=== PATIENT | female | born 1950 | race Caucasian/White ===

== ENCOUNTER 2016-07-13 12:25 | Emergency (ER) | payer OTHER, BC ==
[2016-07-13 12:54] VITALS: BP 99/64; PULSE 59; TEMP 97.6; BMI 28.8
--- NOTE | 2016-07-13 13:01 | PDOC ---
History of Present Illness - General Chief Complaint: Respiratory Stated Complaint: COUGH Time Seen by Provider: 07/13/16 12:59 - History of Present Illness Initial Comments: 07/13/16 13:43 Chief complaint: Cough History of present illness: Patient with a history of asthma/COPD, nonproductive cough for 2 weeks, under the care of Dr. 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 Cough seems to be worsening. Review of systems: No fever/chills, sputum production, chest pain, shortness of breath, abdominal pain, nausea, vomiting, diarrhea, urinary tract symptoms, vaginal bleeding or discharge. Remainder of systems reviewed and found to be negative Past medical history: Asthma/COPD, has home nebulizer but ran out of solution, elevated cholesterol, GERD, Medications: Synthroid, Singulair, Advair, albuterol inhaler, atorvastatin, baby aspirin, Klonopin, prednisone 30 mg. ALLERGIES: None Social history: No tobacco alcohol or nonprescription drugs. Stable home and family. Family history: Reviewed and noncontributory including early coronary artery disease, verbalizes including diabetes, cancer, pulmonary disease including emphysema Physical exam: Alert and oriented 3, well-developed well-nourished, no acute distress. Persistent dry cough Afebrile, vital signs normal. This includes a respiratory rate of 16 unlabored and O2 saturation of 100% on room air ENT: Mild nasal congestion, no discharge Next I would agree mass or nodes Chest clear but breath sounds somewhat distant, reduced. No wheezes rales or rhonchi CV regular without murmur rub or gallop pulses full and symmetric no JVD or edema Abdomen benign Neurological intact Extremities no CCE Impression: Persistent cough and patient was COPD/asthma, status post Augmentin and steroids, no improvement, rule out pneumonia Plan: Chest x-ray and further management depending on results. Reinstitute nebulizer therapy as needed. Further observation. Past History - Past Medical History Allergies/Adverse Reactions: Allergies Allergy/AdvReac Type Severity Reaction Status Date / Time No Known Allergies Allergy Verified 07/13/16 12:27 Home Medications: Ambulatory Orders Levothyroxine Sodium [Synthroid] 50 mcg PO DAILY 11/29/11 Montelukast Na [Singulair -] 10 mg PO HS #0 tablet 08/22/12 Raloxifene HCl [Evista] 60 mg PO DAILY #0 tablet 08/22/12 Ranitidine [Zantac -] 150 mg PO BID #0 tablet 08/22/12 Salmeterol/Fluticasone [Advair 500Mcg/50Mcg -] 1 inh IH BID #0 inh 08/22/12 Biotin 1 cap PO DAILY 03/25/14 Cholecalciferol (Vitamin D3) [Vitamin D3] 1 tab PO DAILY 03/25/14 Aspirin [ASA -] 81 mg PO ASDIR 07/13/16 Atorvastatin Ca [Lipitor] 10 mg PO HS 07/13/16 Clonazepam [KlonoPIN] 0.5 mg PO DAILY 07/13/16 Montelukast Sodium [Singulair Granules -] 2 inhaler DAILY 07/13/16 Prednisone [Deltasone -] 30 mg PO UTDICT 07/13/16 Anemia: Yes (H/O) Asthma: Yes Cancer: No Cardiac Disorders: Yes (MVP) CVA: No COPD: No CHF: No Dementia: No Diabetes: No GI Disorders: Yes (GERD,HIATAL HERNIA) Disorders: No HTN: Yes Hypercholesterolemia: Yes Liver Disease: No Seizures: No Thyroid Disease: Yes (HYPOTHYROID DISEASE) - Surgical History Abdominal Surgery: No Cardiac Surgery: No Lung Surgery: No Neurologic Surgery: No Orthopedic Surgery: No - Immunization History Immunization Up to Date: No - Psycho/Social/Smoking Cessation Hx Anxiety: No Suicidal Ideation: No Smoking Status: No (QUIT 1982) Smoking History: Former smoker Have you smoked in the past 12 months: No Number of Cigarettes Smoked Daily: 0 Information on smoking cessation initiated: No Hx Alcohol Use: No Drug/Substance Use Hx: No Substance Use Type: None Hx Substance Use Treatment: No *Physical Exam - Vital Signs Last Vital Signs Temp Pulse Resp BP Pulse Ox 97.6 F 59 L 16 99/64 100 07/13/16 12:40 07/13/16 12:40 07/13/16 12:40 07/13/16 12:40 07/13/16 12:40 Medical Decision Making - Medical Decision Making 07/13/16 14:10 Improvement with nebulizer. Chest x-ray clear Continue steroids, refill home nebulizer solution, follow-up with Dr. Mcgraw. Copy of x-ray report given. Patient fully ambulatory and in no respiratory distress upon discharge to follow up as directed. *DC/Admit/Observation/Transfer Diagnosis at time of Disposition: Asthma exacerbation in COPD - Discharge Dispostion Disposition: HOME Condition at time of disposition: Stable Admit: No - Patient Instructions Printed Discharge Instructions: DI for Chronic Obstructive Pulmonary Disease Additional Instructions: Chest x-ray shows no sign of pneumonia. Initial home nebulizer as directed. Refill of solutions provided. Continue medication as directed by your doctor See her cardiopulmonary technician and eeg tech for follow-up 1-2 days. Return to hospital if he experienced fever, chills, or shortness of breath.
[2016-07-13] MEDS ORDERED: ALBUTEROL SO4 2.5/IPRATROPIUM 0.5 INH SOL 3 ML VIAL.NEB. NEB ONE ×2 (13:32→13:40)
== END 2016-07-13 14:19 | disposition home or self-care (01) ==
LOC: FER 12:25
PROC: 3E0F7GC Introduction of Other Therapeutic Substance into Respiratory Tract, Via Natural or Artificial Opening (ICD-10-PCS; principal; 2016-07-13)
DX: J45.901 Unspecified asthma with (acute) exacerbation (principal); Z87.891 Personal history of nicotine dependence; I10 Essential (primary) hypertension; K21.9 Gastro-esophageal reflux disease without esophagitis; E78.00 Pure hypercholesterolemia, unspecified; E03.9 Hypothyroidism, unspecified; I34.1 Nonrheumatic mitral (valve) prolapse
CPT/HCPCS: 71020-TC; 94640; 99282-25

== ENCOUNTER 2016-11-11 07:56 | Day surgery (SDC) | payer OTHER, BC ==
[2016-11-10 11:47] VITALS: BMI 28.3
[2016-11-11] MEDS ORDERED: LIDOCAINE HCL 2% (20ML MULTI-DOSE VIAL) NR ONE (08:52)
[2016-11-11] MEDS ORDERED: PROPOFOL 20 ML ONE ×2 (08:52)
[2016-11-11 09:26] VITALS: TEMP 97.6
[2016-11-11 11:53] VITALS: BP 136/81; PULSE 63
--- NOTE | 2016-11-12 14:32 | PATH ---
Surgical Pathology Report Patient Name: JOSE R COLE [facility]. Rec. #: [id number] /Age/Gender: 1950 (Age: 66) / F Account: [id number] Location: [facility]-ENDOSCOPY Taken: 11/11/2016 Received: 11/11/2016 Reported: 11/12/2016 Physicians: Jg Carroll D.O. Specimen(s) Received BX GE JUNCTION Clinical History GERD Reflux esophagitis, candidiasis Final Diagnosis GE JUNCTION, BIOPSY: SQUAMOCOLUMNAR JUNCTIONAL MUCOSA WITH ACTIVE AND CHRONIC INFLAMMATION, FOCAL SURFACE EROSION AND REFLUX TYPE CHANGES. NO INTESTINAL METAPLASIA (SULLIVAN'S ESOPHAGUS) IDENTIFIED. NO FUNGAL ORGANISMS IDENTIFIED WITH PAS STAIN IN THIS SPECIMEN (SEE COMMENT). Comment: Also refer to [id number] for the esophageal brushing results. Electronically Signed Stuart Jeffery M.D. Gross Description Received in formalin, labeled "biopsy GE junction" are 2 briceño, irregular portions of soft tissue averaging 0.2 cm in greatest dimension. The specimens are submitted in toto in one cassette. /11/11/201611/11/2016
--- NOTE | 2016-11-12 14:33 | PATH ---
Cytology Non-Gynecological Report Patient Name: JOSE R COLE [facility]. Rec. #: [id number] /Age/Gender: 1950 (Age: 66) / F Account: [id number] Location: [facility]-ENDOSCOPY Taken: 11/11/2016 Received: 11/11/2016 Reported: 11/12/2016 Physicians: Jg Carroll D.O. Specimen(s) Received ESOPHAGEAL BRUSH Clinical History R/o nikita Final Diagnosis ESOPHAGUS, BRUSHING: SATISFACTORY FOR EVALUATION. NO MALIGNANT CELLS IDENTIFIED. REACTIVE SQUAMOUS CELLS. ACUTE INFLAMMATION. NUMEROUS FUNGAL ORGANISMS MORPHOLOGICALLY CONSISTENT WITH NIKITA SPECIES IDENTIFIED. Electronically Signed Stuart Jeffery M.D. Gross Description Received is 10 cc of clear fluid in 95% alcohol. Three Pap stained smear slides are made.
== END 2016-11-11 10:20 | disposition home or self-care (01) ==
LOC: JASU-ENDO 07:56
PROVIDERS: ATTEND Internal Medicine Gastroenterology
PROC: 0DB18ZX Excision of Upper Esophagus, Via Natural or Artificial Opening Endoscopic, Diagnostic (ICD-10-PCS; 2016-11-11)
PROC: 0DB28ZX Excision of Middle Esophagus, Via Natural or Artificial Opening Endoscopic, Diagnostic (ICD-10-PCS; principal; 2016-11-11 09:00)
DX: K21.0 Gastro-esophageal reflux disease with esophagitis (principal); K44.9 Diaphragmatic hernia without obstruction or gangrene
CPT/HCPCS: 88104; 88305-TC; 88312-TC

== ENCOUNTER 2016-12-16 08:17 | Day surgery (SDC) | payer OTHER, BC ==
[2016-12-15 13:34] VITALS: BMI 27.8
[2016-12-16] MEDS ORDERED: PROPOFOL 20 ML ONE ×2 (08:49)
[2016-12-16 10:46] LABS: CALCIUM 8.5 mg/dL (8.5-10.1); CREATININE 0.6 mg/dL (0.55-1.02); MAGNESIUM 2.4 mg/dL (1.8-2.4)
[2016-12-16 11:30] VITALS: TEMP 97.7
--- NOTE | 2016-12-16 12:30 | EKG ---
Test Reason : Blood Pressure : / mmHG Vent. Rate : 058 BPM Atrial Rate : 058 BPM P-R Int : 142 ms QRS Dur : 096 ms QT Int : 440 ms P-R-T Axes : 051 -10 017 degrees QTc Int : 431 ms SINUS BRADYCARDIA OTHERWISE NORMAL ECG WHEN COMPARED WITH ECG OF 16-AUG-2012 17:30, NO SIGNIFICANT CHANGE WAS FOUND Confirmed by HARDIK BERTRAND MD ([id number]) on 12/16/2016 12:30:17 PM Referred By: KIRILL EVERETT Confirmed By:HARDIK BERTRAND MD
[2016-12-16 12:40] VITALS: BP 134/61; PULSE 62
--- NOTE | 2016-12-17 10:28 | PATH ---
Surgical Pathology Report Patient Name: JOSE R COLE [facility]. Rec. #: [id number] /Age/Gender: 1950 (Age: 66) / F Account: [id number] Location: [facility]OS[facility] Taken: 12/16/2016 Received: 12/16/2016 Reported: 12/17/2016 Physicians: Jg Carroll D.O. Specimen(s) Received POLYP PROXIMAL TRANSVERSE Clinical History History of colon polyps Colon polyp, diverticulosis Final Diagnosis COLON, PROXIMAL TRANSVERSE, BIOPSY: HYPERPLASTIC POLYP. Electronically Signed Shola Sharpe M.D. Gross Description Received in formalin, labeled "polyp proximal transverse" is a briceño, irregular portion of soft tissue measuring 0.2 cm. in greatest dimension. The specimen is submitted in toto in one cassette. 12/16/201612/16/2016
== END 2016-12-16 12:40 | disposition home or self-care (01) ==
LOC: JASU-ENDO 08:17
PROVIDERS: ATTEND Internal Medicine Gastroenterology
PROC: 0DBL8ZX Excision of Transverse Colon, Via Natural or Artificial Opening Endoscopic, Diagnostic (ICD-10-PCS; principal; 2016-12-16 09:00)
DX: Z12.11 Encounter for screening for malignant neoplasm of colon (principal); D12.3 Benign neoplasm of transverse colon; K57.30 Diverticulosis of large intestine without perforation or abscess without bleeding; K63.89 Other specified diseases of intestine; K64.8 Other hemorrhoids; Z86.010 Personal history of colon polyps; Z80.0 Family history of malignant neoplasm of digestive organs
CPT/HCPCS: 36415; 80048; 83735; 88305-TC; 93005; 93010

== ENCOUNTER 2017-02-11 19:19 | Emergency (ER) | payer OTHER, BC ==
--- NOTE | 2017-02-11 19:29 | PDOC ---
History of Present Illness - History of Present Illness Initial Comments: 02/11/17 19:34 67 F with a PMHx of asthma/COPD presents to the ED with a right handed 4th digit injury today. Patient reports that she caught her finger on something and it pulled her finger the wrong way. She has associated pain and swelling. She came to the ED to make sure it wasnt broken. She did not take anything for pain. No other complaints. PAST MEDICAL HISTORY: asthma/COPD PAST SURGICAL HISTORY: no significant history FAMILY HISTORY: no pertinent history SOCIAL HISTORY: Pt lives with family and is employed. MEDICATIONS: reviewed ALLERGIES: As per nursing notes Review of Systems: General: No fevers or chills, no weakness, no weight loss HEENT: No change in vision. No sore throat,. No ear pain CardioVascular: No chest pain or shortness of breath Respiratory: No cough, or wheezing. Gastrointestinal: no nausea, vomiting, diarrhea or constipation, No rectal bleeding Genitourinary: No dysuria, hematuria, or frequency Musculoskeletal: (+) right handed 4th digit pain and swelling. Neurologic: No headache, vertigo, dizziness or loss of consciousness Psychiatric: No depression Skin: No rashes or easy bruising Endocrine: No increased thirst or abnormal weight change Allergic: No skin or latex allergy All other systems reviewed and normal Physical Exam: GENERAL: The patient is awake, alert, and fully oriented, in no acute distress. HEAD: Normal with no signs of trauma. EYES: Pupils equal, round and reactive to light, extraocular movements intact, sclera anicteric, conjunctiva clear. EXTREMITIES: Tenderness, swelling and mild erythema of the proximal phalanx at the right ring finger. Full ROM at MCP and PIP joint. No deformity. Neurovascular distal intact. NEUROLOGICAL: Normal speech, normal gait. PSYCH: Normal mood, normal affect. SKIN: Warm, Dry, normal turgor, no rashes or lesions noted. <Odessa Tolentino - Last Filed: 02/11/17 19:34> - General History Source: Patient Exam Limitations: No Limitations - History of Present Illness Initial Comments: 02/11/17 20:06 A portion of this note was documented by scribe services under my direction. I have reviewed the details of the note, within reason, and agree with the documentation. The case summary and management plan written by me. X-ray no acute fracture dislocation Assessment and plan: This is a 67-year-old female or injured her right ring finger earlier in the day prior to coming in. Patient x-rays negative for any acute fracture dislocation or pathology. Patient given ibuprofen in the emergency room. Patient discharged home will follow-up with her primary care doctor as needed. <Albert Harrell I - Last Filed: 02/11/17 20:08> - General Chief Complaint: Injury Stated Complaint: RH 4TH FINGER INJURY Time Seen by Provider: 02/11/17 19:21 Past History <Odessa Tolentino - Last Filed: 02/11/17 19:34> - Past Medical History Anemia: No Asthma: Yes Cancer: No Cardiac Disorders: (MVP) CVA: No COPD: No CHF: No Dementia: No Diabetes: No GI Disorders: Yes (HIATAL HERNIA;GERD; DIVERTICULOSIS) Disorders: No HTN: Yes Hypercholesterolemia: Yes Liver Disease: No Seizures: No Thyroid Disease: Yes (PARATHYROID DISEASE) - Surgical History Abdominal Surgery: No Appendectomy: No Cardiac Surgery: No Cholecystectomy: No Lung Surgery: No Neurologic Surgery: No Orthopedic Surgery: Yes (FOOT SURGERY) - Immunization History Immunization Up to Date: No - Psycho/Social/Smoking Cessation Hx Anxiety: No Suicidal Ideation: No Smoking Status: No (QUIT 1982) Smoking History: Never smoked Have you smoked in the past 12 months: No Number of Cigarettes Smoked Daily: 0 If you are a former smoker, when did you quit?: 1983 Hx Alcohol Use: Yes (OCCA.) Drug/Substance Use Hx: No Substance Use Type: None Hx Substance Use Treatment: No <Albert Harrell I - Last Filed: 02/11/17 20:08> - Past Medical History Allergies/Adverse Reactions: Allergies Allergy/AdvReac Type Severity Reaction Status Date / Time mold Allergy Verified 11/10/16 11:31 DUST Allergy Uncoded 11/10/16 11:31 Home Medications: Ambulatory Orders Levothyroxine Sodium [Synthroid] 50 mcg PO DAILY 11/29/11 Montelukast Na [Singulair -] 10 mg PO HS #0 tablet 08/22/12 Raloxifene HCl [Evista] 60 mg PO DAILY #0 tablet 08/22/12 Salmeterol/Fluticasone [Advair 500Mcg/50Mcg -] 1 inh IH BID #0 inh 08/22/12 Biotin 1 cap PO DAILY 03/25/14 Cholecalciferol (Vitamin D3) [Vitamin D3] 1 tab PO DAILY 03/25/14 Atorvastatin Ca [Lipitor] 10 mg PO HS 07/13/16 Clonazepam [KlonoPIN] 0.5 mg PO DAILY 07/13/16 Valsartan 40 mg PO DAILY 11/11/16 Albuterol Sulfate [Proair Respiclick] 90 mcg IH DAILY PRN 12/15/16 Ranitidine [Zantac -] 150 mg PO DAILY 12/15/16 *Physical Exam - Vital Signs Last Vital Signs Temp Pulse Resp BP Pulse Ox 97.4 F L 72 16 130/80 98 02/11/17 19:26 02/11/17 19:26 02/11/17 19:26 02/11/17 19:26 02/11/17 19:26 <Odessa Tolentino - Last Filed: 02/11/17 19:34> - Vital Signs Last Vital Signs Temp Pulse Resp BP Pulse Ox 97.4 F L 72 16 130/80 98 02/11/17 19:26 02/11/17 19:26 02/11/17 19:26 02/11/17 19:26 02/11/17 19:26 <Albert Harrell I - Last Filed: 02/11/17 20:08> *DC/Admit/Observation/Transfer - Attestations Scribe Attestion: 02/11/17 19:35 Documentation prepared by Odessa Tolentino, acting as director biomedical engineering for Albert Harrell MD. <Odessa Tolentino - Last Filed: 02/11/17 19:34> - Discharge Dispostion Admit: No <Albert Harrell I - Last Filed: 02/11/17 20:08> Diagnosis at time of Disposition: Contusion of right ring finger Qualifiers: Encounter type: initial encounter Damage to nail status: without damage Qualified Code(s): S60.041A - Contusion of right ring finger without damage to nail, initial encounter - Discharge Dispostion Disposition: HOME Condition at time of disposition: Stable - Referrals Referrals: Beau Crouch MD [Primary Care Provider] - - Patient Instructions Additional Instructions: Tylenol or Motrin as needed for pain. Return to the emergency department immediately with ANY new, persistent or worsening symptoms. Continue any medications as previously prescribed by your physician. You should follow up with your primary doctor as soon as possible regarding today's emergency department visit. . Please make sure your doctor reviews the results of your emergency evaluation. Thank you for coming to the Emergency Department today for your care. It was a pleasure to see you today. Please note that your evaluation is INCOMPLETE until you follow-up with your doctor.
[2017-02-11 19:34] VITALS: BP 130/80; PULSE 72; TEMP 97.4; BMI 27.4
[2017-02-11] MEDS ORDERED: IBUPROFEN 600 MG TABLET (FP) PO ONE ×2 (19:46→19:48)
== END 2017-02-11 20:14 | disposition home or self-care (01) ==
LOC: FER 19:19
DX: S60.041A Contusion of right ring finger without damage to nail, initial encounter (principal); X58.XXXA Exposure to other specified factors, initial encounter; Y93.89 Activity, other specified; Y92.9 Unspecified place or not applicable; J45.909 Unspecified asthma, uncomplicated; K57.90 Diverticulosis of intestine, part unspecified, without perforation or abscess without bleeding; E07.9 Disorder of thyroid, unspecified; I10 Essential (primary) hypertension; E78.00 Pure hypercholesterolemia, unspecified; Z87.891 Personal history of nicotine dependence
CPT/HCPCS: 73140-TC-RT; 99281-25

== ENCOUNTER 2019-05-08 11:40 | Day surgery (SDC) | payer OTHER, BC ==
[2019-05-08] MEDS ORDERED: KETOROLAC TROMETHAMINE 0.5% EYE DROP 1 DROP DROPS ONE (11:59)
[2019-05-08] MEDS ORDERED: TROPICAMIDE 1% OPHTH SOLN 15 ML BOTTLE ONE (11:59)
[2019-05-08] MEDS ORDERED: CYCLOPENTOLATE HCL 1% OPHTH SOLN 2 ML BOTTLE ONE (11:59)
[2019-05-08] MEDS ORDERED: OFLOXACIN 0.3% OPHTHALMIC SOLUTION 5 ML BOTTLE ONE (11:59)
[2019-05-08] MEDS ORDERED: PHENYLEPHRINE 2.5% OPHTH SOLN 15 ML BOTTLE ONE (11:59)
[2019-05-08 12:30] VITALS: BMI 25.7
[2019-05-08] MEDS: TROPICAMIDE 1% OPHTH SOLN 15 ML BOTTLE OS SCH ×5 (12:50→13:10)
[2019-05-08] MEDS: KETOROLAC TROMETHAMINE 0.5% EYE DROP 1 DROP DROPS OS SCH ×5 (12:50→13:10)
[2019-05-08] MEDS: PHENYLEPHRINE 2.5% OPHTH SOLN 15 ML BOTTLE OS SCH ×5 (12:50→13:10)
[2019-05-08] MEDS: CYCLOPENTOLATE HCL 1% OPHTH SOLN 2 ML BOTTLE OS SCH ×5 (12:50→13:10)
[2019-05-08] MEDS: OFLOXACIN 0.3% OPHTHALMIC SOLUTION 5 ML BOTTLE OS SCH ×5 (12:50→13:10)
[2019-05-08] MEDS ORDERED: ACETAMINOPHEN 325 MG TABLET (FP) PO PRN (13:55)
[2019-05-08] MEDS ORDERED: EPI-SHUGARCAINE (EPINEPHRINE 0.025% & LIDOCAINE-PF 0.75%) 4ML ONE (14:11)
[2019-05-08] MEDS ORDERED: POVIDONE-IODINE 5% OPHTHALMIC PREP 30 ML SOLUTION ONE (14:11)
[2019-05-08] MEDS ORDERED: TETRACAINE 0.5% OPHTH SOLN 2 ML BOTTLE ONE (14:11)
[2019-05-08] MEDS ORDERED: MIDAZOLAM HCL 2 MG/2 ML SINGLE DOSE VIAL ONE ×2 (14:14→14:29)
[2019-05-08] MEDS ORDERED: ONDANSETRON 4 MG/2 ML VIAL ONE (14:30)
[2019-05-08] MEDS ORDERED: ACETAMINOPHEN 325 MG TABLET (FP) ONE (15:32)
--- NOTE | 2019-05-08 15:50 | OP ---
DATE OF OPERATION: 05/08/2019 PREOPERATIVE DIAGNOSIS: Cataract, left eye. POSTOPERATIVE DIAGNOSIS: Cataract, left eye. PROCEDURE: Cataract extraction via phacoemulsification with insertion of posterior chamber lens implant, left eye. SURGEON: Kandice Jacobson MD SENIOR TECHNICAL EDITOR: Kandice Jacobson MD ANESTHESIA: Topical with sedation. ESTIMATED BLOOD LOSS: Less than 1 mL. COMPLICATIONS: None. SPECIMENS: None. DESCRIPTION OF PROCEDURE: The patient was identified in the holding area. After all risks, benefits, and alternatives were explained to the patient, informed consent was obtained. The left eye was marked with a marking pen. The patient then entered the operating room on an eye stretcher. After a formal time-out was performed, topical tetracaine eye drops were instilled onto the left eye. The patient was then instructed to sit up and look straight ahead, and the cardinal axes of astigmatism were measured using a Toric bubble marker and a Toric marking pen. The patient was then instructed to lay back down, and the left eye was prepped and draped in the usual sterile fashion. An eyelid speculum was placed beneath the eyelid of the left eye. An inferotemporal paracentesis incision was created using a 15-degree blade. Then prior to incision creation, the axis of astigmatism was marked onto the cornea using a Toric dial and a Toric marking pen, which was noted to be 165 degrees. Then preservative-free epinephrine and preservative-free lidocaine was injected into the anterior chamber. Viscoelastic was then injected into the anterior chamber. A 2.4-mm keratome blade was then used to make a superotemporal incision. A 360-degree continuous curvilinear capsulorrhexis was then created using bent cystotome and Utrata forceps. Hydrodissection was performed using balanced saline solution on a cannula. Phacoemulsification was introduced to disassemble and remove the nucleus in its entirety. Irrigation/aspiration was then used to remove any remaining cortical material from the eye. The capsular bag was reformed using viscoelastic. An Clayton Model [id number] with a power of 17.0 diopter serial number [id number] was inspected and found to be defect free and injected into the capsular bag. Irrigation/aspiration was then used to remove any remaining viscoelastic from the eye. The intraocular lens was rotated so that the axis of astigmatism on the optic matched the axis of astigmatism on the cornea, which was noted to be 165 degrees. Then all wounds were hydrated with balanced saline solution and noted to be watertight. The anterior chamber was deep. There was a red reflex present. The lens was perfectly centered in the capsular bag, and the eye had adequate pressure. Topical antibiotic eyedrops and ointment were then administered to the left eye. The eyelid speculum was removed from the left eye. The left eye was shielded. The patient tolerated the procedure well. Left the operating room in stable condition to follow up in the eye clinic tomorrow morning at 10 o'clock. KANDICE JACOBSON M.D. [id number]
[2019-05-08 16:20] VITALS: TEMP 97.8
[2019-05-08 16:38] VITALS: BP 126/68; PULSE 65
== END 2019-05-08 16:20 | disposition home or self-care (01) ==
LOC: FASU 11:40
PROVIDERS: ATTEND Ophthalmology
PROC: 08RK3JZ Replacement of Left Lens with Synthetic Substitute, Percutaneous Approach (ICD-10-PCS; principal; 2019-05-08 14:41)
DX: H26.9 Unspecified cataract (principal)

== ENCOUNTER 2019-05-22 11:00 | Day surgery (SDC) | payer OTHER, BC ==
[2019-05-03 12:41] VITALS: BMI 25.7
[2019-05-22] MEDS ORDERED: OFLOXACIN 0.3% OPHTHALMIC SOLUTION 5 ML BOTTLE ONE (11:15)
[2019-05-22] MEDS ORDERED: CYCLOPENTOLATE HCL 1% OPHTH SOLN 2 ML BOTTLE ONE (11:15)
[2019-05-22] MEDS ORDERED: KETOROLAC TROMETHAMINE 0.5% EYE DROP 1 DROP DROPS ONE (11:16)
[2019-05-22] MEDS ORDERED: TROPICAMIDE 1% OPHTH SOLN 15 ML BOTTLE ONE (11:16)
[2019-05-22] MEDS ORDERED: PHENYLEPHRINE 2.5% OPHTH SOLN 15 ML BOTTLE ONE (11:16)
[2019-05-22] MEDS: TROPICAMIDE 1% OPHTH SOLN 15 ML BOTTLE OD SCH ×5 (11:35→11:55)
[2019-05-22] MEDS: KETOROLAC TROMETHAMINE 0.5% EYE DROP 1 DROP DROPS OD SCH ×6 (11:35→11:59)
[2019-05-22] MEDS: CYCLOPENTOLATE HCL 1% OPHTH SOLN 2 ML BOTTLE OD SCH ×5 (11:35→11:55)
[2019-05-22] MEDS: PHENYLEPHRINE 2.5% OPHTH SOLN 15 ML BOTTLE OD SCH ×5 (11:35→11:55)
[2019-05-22] MEDS: OFLOXACIN 0.3% OPHTHALMIC SOLUTION 5 ML BOTTLE OD SCH ×5 (11:35→11:55)
[2019-05-22] MEDS ORDERED: ACETAMINOPHEN 325 MG TABLET (FP) PO PRN (11:55)
[2019-05-22] MEDS ORDERED: EPI-SHUGARCAINE (EPINEPHRINE 0.025% & LIDOCAINE-PF 0.75%) 4ML ONE (11:57)
[2019-05-22] MEDS ORDERED: POVIDONE-IODINE 5% OPHTHALMIC PREP 30 ML SOLUTION ONE (11:57)
[2019-05-22] MEDS ORDERED: NEO/POLYMYX B SULF/DEXAMETH OPHTHALMIC 5ML BOTTLE ONE (11:57)
[2019-05-22] MEDS ORDERED: BETAXOLOL HCL 0.25% OPHTHALMIC 10 ML DROPSBTL ONE (11:57)
[2019-05-22] MEDS ORDERED: BACITRACIN/POLYMYXIN OPH OINT 3.5 GM TUBE ONE (11:57)
[2019-05-22] MEDS ORDERED: MIDAZOLAM HCL 2 MG/2 ML SINGLE DOSE VIAL ONE (12:13)
[2019-05-22 13:34] VITALS: PULSE 64; TEMP 98.3
--- NOTE | 2019-05-22 13:34 | OP ---
DATE OF OPERATION: 05/22/2019 PREOPERATIVE DIAGNOSIS: Cataract, right eye. POSTOPERATIVE DIAGNOSIS: Cataract, right eye. PROCEDURE: Cataract extraction via phacoemulsification with insertion of posterior chamber lens implant, right eye, Toric lens. SURGEON: Kandice Jacobson MD COUNCILMAN: Kandice Jacobson MD ANESTHESIA: Topical with sedation. ESTIMATED BLOOD LOSS: Less than 1 mL. COMPLICATIONS: None. SPECIMENS: None. DESCRIPTION OF PROCEDURE: The patient was identified in the holding area. After all risks and benefits were explained to the patient, informed consent was obtained. The right eye was marked with a marking pen. The patient then entered the operating room on an eye stretcher. After a formal time-out was performed, topical tetracaine eye drops were instilled onto the right eye. The patient was then asked to sit up and look straight ahead, and the cardinal axes of astigmatism were marked with a Toric bubble marker and a Toric marking pen. The patient was then asked to lay back down, and the right eye was prepped and draped in the usual sterile fashion. An eyelid speculum was placed beneath the eyelid of the right eye. Then the axis of astigmatism was marked onto the cornea, which was noted to be 180 degrees. That was done with a Toric dial and a Toric marking pen. Then a superotemporal paracentesis incision was created using a 15-degree blade. Preservative-free epinephrine and preservative-free lidocaine were then injected into the anterior chamber. Viscoelastic was then injected into the anterior chamber. A 2.4-mm keratome blade was then used to make an infratemporal incision. A 360-degree continuous curvilinear capsulorrhexis was then created using bent cystotome and Utrata forceps. Hydrodissection was performed using balanced saline solution on a cannula. Phacoemulsification was introduced to disassemble and remove the nucleus in its entirety. Irrigation/aspiration was then used to remove any remaining viscoelastic and cortex from the eye. The capsular bag was reformed using viscoelastic. An Clayton Model [id number] with a power of 20.5 diopter serial number [id number] was inspected and found to be defect free and injected into the capsular bag. Irrigation/aspiration was then used to remove any remaining viscoelastic. Then the intraocular lens was rotated so that the axis of astigmatism on the optic matched the axis of astigmatism on the cornea, which was noted to be 180 degrees. It was confirmed that all viscoelastic was evacuated posterior to the optic. Then the anterior chamber was reformed using balanced saline solution. All wounds were hydrated with balanced saline solution and noted to be watertight. The lens was perfectly centered in the capsular bag with the axis of astigmatism at 180 degrees. The anterior chamber was deep. There was a red reflex present, and the eye had adequate pressure. Topical antibiotic eyedrops and ointment were then administered to the right eye. The eyelid speculum was removed from the right eye. The right eye was shielded. The patient tolerated the procedure well. Left the operating room in stable condition to follow up in the eye clinic tomorrow morning at 10 o'clock. KANDICE JACOBSON M.D. [id number]
[2019-05-22 14:26] VITALS: BP 106/60
== END 2019-05-22 14:15 | disposition home or self-care (01) ==
LOC: FASU 11:00
PROVIDERS: ATTEND Ophthalmology
PROC: 08RJ3JZ Replacement of Right Lens with Synthetic Substitute, Percutaneous Approach (ICD-10-PCS; principal; 2019-05-22 12:38)
DX: H26.9 Unspecified cataract (principal)

== ENCOUNTER 2021-02-22 14:35 | Emergency (ER) | payer OTHER, BC ==
[2021-02-24 12:09] LABS: SARS-CoV-2 NAA Not Detected (Not Detected)
== END 2021-02-22 15:36 | disposition home or self-care (01) ==
LOC: JVIRT 14:35
DX: J02.9 Acute pharyngitis, unspecified (principal)
CPT/HCPCS: 87880; C9803; Q3014-GT; U0003; U0005

== ENCOUNTER 2021-09-30 12:33 | Inpatient (IN) | payer OTHER, BC ==
[2021-09-30] MEDS ORDERED: dilTIAZem HCL 50 MG/10 ML - 10 ML VIAL IVPUSH ONE (13:28)
[2021-09-30] MEDS ORDERED: dilTIAZem HCL 125 MG/25 ML - 25 ML VIAL ONE (13:53)
[2021-09-30 14:14] LABS: BASO % 1.3 % (0-2.0); EOS % 8.2 % (0-4.5); HEMATOCRIT 40.8 % (32.4-45.2); HEMOGLOBIN 13.9 GM/dL (10.7-15.3); LYMPH % 19.1 % (8-40); MCH 32.3 pg (25.7-33.7); MCHC 34.1 g/dl (32.0-36.0); MEAN CELL VOLUME 94.6 fl (80-96); MEAN PLT VOLUME 9.5 fl (7.5-11.1); MONO % 12.3 % (3.8-10.2); NEUT % 59.1 % (42.8-82.8); PLATELET COUNT 212 10^3/uL (134-434); RBC 4.32 M/mm3 (3.60-5.2); RDW 13.8 % (11.6-15.6); URINE APPEARANCE CLEAR; URINE BILIRUBIN NEGATIVE (NEGATIVE); URINE COLOR YELLOW; URINE GLUCOSE (UA) NEGATIVE (NEGATIVE); URINE KETONE TRACE (NEGATIVE); URINE LEUK ESTERASE NEGATIVE (NEGATIVE); URINE NITRITE NEGATIVE (NEGATIVE); URINE PROTEIN NEGATIVE (NEGATIVE); WHITE BLOOD COUNT 5.5 K/mm3 (4.0-10.0)
[2021-09-30 14:21] LABS: INR 1.04 (0.83-1.09)
[2021-09-30 14:24] LABS: ACTIVATED PTT 28.8 SECONDS (25.2-36.5)
[2021-09-30 14:33] LABS: CALCIUM 9.3 mg/dL (8.5-10.1)
[2021-09-30 14:34] LABS: ALBUMIN 3.6 g/dl (3.4-5.0); BLOOD UREA NITROGEN 10.6 mg/dL (7-18)
[2021-09-30 14:37] LABS: CREATININE 0.6 mg/dL (0.55-1.3)
[2021-09-30] MEDS ORDERED: dilTIAZem HCL 30 MG TABLET PO ONE (14:37)
[2021-09-30 14:39] LABS: BILIRUBIN,TOTAL 0.6 mg/dL (0.2-1); TOT PROT 6.6 g/dl (6.4-8.2)
[2021-09-30] MEDS ORDERED: dilTIAZem HCL 30 MG TABLET ONE (14:58)
[2021-09-30] MEDS ORDERED: metoPROLOL SUCCINATE 25 MG TAB.SR.24H (FP) PO SCH (17:00)
[2021-09-30] MEDS ORDERED: ACETAMINOPHEN 325 MG TABLET (FP) PO ONE (17:51)
[2021-09-30] MEDS: SOTALOL HCL 80 MG TABLET (FP) PO SCH ×2 (17:55→21:48)
[2021-09-30] MEDS ORDERED: ACETAMINOPHEN 325 MG TABLET (FP) ONE (17:56)
[2021-09-30] MEDS ORDERED: WARFARIN NA 5 MG TABLET PO SCH (18:00)
[2021-09-30] MEDS: ATORVASTATIN CA 10 MG TABLET (FP) PO SCH (21:48)
[2021-09-30] MEDS: APIXABAN 5 MG TABLET PO SCH (21:48)
[2021-09-30] MEDS: MONTELUKAST NA 10 MG TABLET PO SCH (21:49)
[2021-09-30] MEDS: BUDESONIDE/FORMETEROL FUMARATE 160/4.5 mcg INHALER IH SCH ×2 (21:49→21:53)
[2021-09-30] MEDS: TIOTROPIUM BROMIDE 2.5 MCG (SPIRIVA) RESPIMAT INHALER IH SCH ×2 (21:49→21:53)
[2021-09-30] MEDS: FAMOTIDINE 20 MG TABLET PO SCH (21:49)
[2021-09-30] MEDS ORDERED: ENOXAPARIN NA (PORCINE) 60 MG/0.6 ML DISP.SYRIN SQ SCH (22:00)
[2021-09-30] MEDS ORDERED: lamoTRIgine 25 MG TABLET PO SCH (22:00)
[2021-09-30 22:33] VITALS: BMI 27.3
[2021-10-01] MEDS: LEVOTHYROXINE NA 50 MCG TABLET (FP) PO SCH (06:46)
[2021-10-01 07:21] LABS: BASO % 1.9 % (0-2.0); EOS % 15.1 % (0-4.5); HEMATOCRIT 41.9 % (32.4-45.2); LYMPH % 24.4 % (8-40); MCH 32.1 pg (25.7-33.7); MCHC 33.4 g/dl (32.0-36.0); MEAN PLT VOLUME 9.2 fl (7.5-11.1); MONO % 14.4 % (3.8-10.2); NEUT % 44.2 % (42.8-82.8); PLATELET COUNT 243 10^3/uL (134-434); RBC 4.37 M/mm3 (3.60-5.2); RDW 13.6 % (11.6-15.6); WHITE BLOOD COUNT 5.5 K/mm3 (4.0-10.0)
[2021-10-01 08:00] LABS: ALBUMIN 3.2 g/dl (3.4-5.0); BLOOD UREA NITROGEN 13.8 mg/dL (7-18); CALCIUM 9.1 mg/dL (8.5-10.1); MAGNESIUM 2.4 mg/dL (1.8-2.4)
[2021-10-01 08:03] LABS: PHOSPHOROUS 3.7 mg/dL (2.5-4.9)
[2021-10-01 08:04] LABS: CREATININE 0.6 mg/dL (0.55-1.3)
[2021-10-01 08:05] LABS: BILIRUBIN,TOTAL 0.5 mg/dL (0.2-1)
[2021-10-01] MEDS: SOTALOL HCL 80 MG TABLET (FP) PO SCH ×3 (09:15→21:12)
[2021-10-01] MEDS: APIXABAN 5 MG TABLET PO SCH ×3 (09:15→21:12)
[2021-10-01] MEDS: BUDESONIDE/FORMETEROL FUMARATE 160/4.5 mcg INHALER IH SCH ×2 (09:17→21:12)
[2021-10-01] MEDS ORDERED: LOSARTAN POTASSIUM 50 MG TABLET PO SCH (10:00)
[2021-10-01] MEDS ORDERED: amLODIPine BESYLATE 5 MG TABLET (FP) PO SCH (10:00)
[2021-10-01] MEDS ORDERED: ACETAMINOPHEN 325 MG TABLET (FP) PO PRN (11:27)
[2021-10-01] MEDS ORDERED: clonazePAM 0.5 MG TABLET PO PRN (12:11)
[2021-10-01] MEDS: ESCITALOPRAM OXALATE 20 MG TABLET PO SCH (12:35)
[2021-10-01] MEDS ORDERED: ALBUTEROL SO4 HFA INHALER IH PRN (12:38)
[2021-10-01] MEDS: dilTIAZem HCL 30 MG TABLET PO SCH (17:51)
[2021-10-01] MEDS: MONTELUKAST NA 10 MG TABLET PO SCH ×2 (20:25→21:12)
[2021-10-01] MEDS: ATORVASTATIN CA 10 MG TABLET (FP) PO SCH ×2 (20:25→21:12)
[2021-10-01] MEDS: TIOTROPIUM BROMIDE 2.5 MCG (SPIRIVA) RESPIMAT INHALER IH SCH (21:12)
[2021-10-01] MEDS: FAMOTIDINE 20 MG TABLET PO SCH (21:12)
[2021-10-02] MEDS: dilTIAZem HCL 30 MG TABLET PO SCH ×2 (00:20→05:58)
[2021-10-02] MEDS: LEVOTHYROXINE NA 50 MCG TABLET (FP) PO SCH ×2 (05:58→06:08)
[2021-10-02 07:02] LABS: BASO % 1.4 % (0-2.0); EOS % 15.1 % (0-4.5); HEMATOCRIT 36.5 % (32.4-45.2); HEMOGLOBIN 12.2 GM/dL (10.7-15.3); LYMPH % 21.9 % (8-40); MCH 32.1 pg (25.7-33.7); MCHC 33.4 g/dl (32.0-36.0); MEAN CELL VOLUME 96.3 fl (80-96); MEAN PLT VOLUME 9.3 fl (7.5-11.1); MONO % 13.5 % (3.8-10.2); NEUT % 48.1 % (42.8-82.8); PLATELET COUNT 224 10^3/uL (134-434); RBC 3.79 M/mm3 (3.60-5.2); RDW 13.6 % (11.6-15.6); WHITE BLOOD COUNT 5.8 K/mm3 (4.0-10.0)
[2021-10-02 07:21] LABS: ALBUMIN 3.1 g/dl (3.4-5.0); BLOOD UREA NITROGEN 14.7 mg/dL (7-18); MAGNESIUM 2.2 mg/dL (1.8-2.4)
[2021-10-02 07:24] LABS: CREATININE 0.6 mg/dL (0.55-1.3)
[2021-10-02 07:25] LABS: TOT PROT 5.5 g/dl (6.4-8.2)
[2021-10-02 07:26] LABS: BILIRUBIN,TOTAL 0.3 mg/dL (0.2-1)
[2021-10-02] MEDS ORDERED: SOTALOL HCL 80 MG TABLET (FP) PO SCH (08:46)
[2021-10-02] MEDS: APIXABAN 5 MG TABLET PO SCH (09:20)
[2021-10-02] MEDS: ESCITALOPRAM OXALATE 20 MG TABLET PO SCH (09:21)
[2021-10-02] MEDS ORDERED: ASPIRIN COATED 81 MG TABLET.EC PO SCH (10:00)
[2021-10-02] MEDS ORDERED: TIOTROPIUM BROMIDE 2.5 MCG (SPIRIVA) RESPIMAT INHALER IH SCH (10:15)
[2021-10-02] MEDS: BUDESONIDE/FORMETEROL FUMARATE 160/4.5 mcg INHALER IH SCH (10:53)
[2021-10-02 14:27] VITALS: BP 122/71; PULSE 68; TEMP 97.4
== END 2021-10-02 18:24 | disposition home or self-care (01) | DRG 310 ==
LOC: JER 12:33 → JERBED 15:07 → J4W 19:28
PROVIDERS: ADMIT Internal Medicine; ATTEND Nurse Practitioner Family
DX: I48.0 Paroxysmal atrial fibrillation (principal); I10 Essential (primary) hypertension; E78.5 Hyperlipidemia, unspecified; E03.9 Hypothyroidism, unspecified; J45.909 Unspecified asthma, uncomplicated; K21.9 Gastro-esophageal reflux disease without esophagitis; K57.90 Diverticulosis of intestine, part unspecified, without perforation or abscess without bleeding; K44.9 Diaphragmatic hernia without obstruction or gangrene; I34.1 Nonrheumatic mitral (valve) prolapse; R91.1 Solitary pulmonary nodule; J44.9 Chronic obstructive pulmonary disease, unspecified; M48.00 Spinal stenosis, site unspecified
CPT/HCPCS: 36415; 71045-TC-FY; 80053; 81003; 83735; 84100; 84443; 84484; 85025; 85610; 85730; 87086; 93005; 93010; 99291; C9803-CS; U0003; U0005

== ENCOUNTER 2022-02-11 09:58 | Emergency (ER) | payer OTHER, BC ==
[2022-02-11] MEDS ORDERED: SODIUM CHLORIDE 250 ML IV STA (10:17)
[2022-02-11 10:20] VITALS: BP 143/75; PULSE 58; RESP 18; TEMP 98.5; BMI 26.5
[2022-02-11 11:05] LABS: HEMOGLOBIN 12.6 G/dL (10.7-15.3); MCH 32.3 pg (25.7-33.7); MCHC 33.9 g/dl (32.0-36.0); MEAN CELL VOLUME 95.1 fl (80-96); MEAN PLT VOLUME 9.4 fl (7.5-11.1); PLATELET COUNT 175.8 10^3/uL (134-434); RBC 3.89 10^6/uL (3.60-5.2); RDW 13.9 % (11.6-15.6); WHITE BLOOD COUNT 6.3 10^3/uL (4.0-10.8)
[2022-02-11 11:11] LABS: EPITHELIAL CELLS RARE /hpf
[2022-02-11 11:13] LABS: ALBUMIN 3.6 g/dl (3.4-5.0); BILIRUBIN,TOTAL 0.8 mg/dl (0.2-1); CALCIUM 9.4 mg/dl (8.5-10); CREATININE 0.6 mg/dl (0.55-1.3); TOT PROT 5.8 g/dl (6.4-8.2)
[2022-02-11 11:20] LABS: PLATELET ESTIMATE ADEQUATE
[2022-02-11] MEDS ORDERED: POTASSIUM CHLORIDE TABS 20 MEQ TABLET.ER (FP) PO ONE ×2 (11:32→11:38)
== END 2022-02-11 12:07 | disposition home or self-care (01) ==
LOC: FER 09:58 → SUPCPDRO 09:58 → FER 12:07
PROC: 3E0337Z Introduction of Electrolytic and Water Balance Substance into Peripheral Vein, Percutaneous Approach (ICD-10-PCS; principal; 2022-02-11)
DX: K52.9 Noninfective gastroenteritis and colitis, unspecified (principal)
CPT/HCPCS: 36415; 80053; 81003; 81015; 85027; 99284-25

== ENCOUNTER 2022-07-29 15:51 | Emergency (ER) | payer OTHER, BC ==
[2022-07-29] MEDS ORDERED: DIPHTH,PERTUSS(ACELL),TET 0.5 ML DISP.SYRIN IM ONE ×2 (17:19→17:28)
[2022-07-29 17:20] VITALS: BP 131/61; PULSE 73; RESP 20; TEMP 98.2; BMI 22.1
== END 2022-07-29 19:22 | disposition home or self-care (01) ==
LOC: FER 15:51
PROC: 3E0234Z Introduction of Serum, Toxoid and Vaccine into Muscle, Percutaneous Approach (ICD-10-PCS; principal; 2022-07-29)
DX: M79.641 Pain in right hand (principal); M79.642 Pain in left hand; W19.XXXA Unspecified fall, initial encounter
CPT/HCPCS: 70450-TC; 70486-TC; 72125-TC; 73110-TC-RT-FY; 73630-TC-RT-FY; 90471; 90715; 99284-25

== ENCOUNTER 2023-11-07 04:42 | Day surgery (SDC) | payer OTHER, BC ==
[2023-11-01 16:15] VITALS: BMI 26.7
[2023-11-07 09:14] VITALS: TEMP 98.6
[2023-11-07] MEDS ORDERED: ONDANSETRON 4 MG/2 ML VIAL ONE (09:22)
[2023-11-07 09:25] VITALS: PULSE 55
[2023-11-07 10:09] VITALS: BP 142/84; RESP 12
== END 2023-11-07 10:35 | disposition home or self-care (01) ==
LOC: JASU-ENDO 04:42
PROVIDERS: ATTEND Internal Medicine Gastroenterology
PROC: 0DBL8ZX Excision of Transverse Colon, Via Natural or Artificial Opening Endoscopic, Diagnostic (ICD-10-PCS; 2023-11-07)
PROC: 0DBN8ZX Excision of Sigmoid Colon, Via Natural or Artificial Opening Endoscopic, Diagnostic (ICD-10-PCS; 2023-11-07)
PROC: 0DBM8ZX Excision of Descending Colon, Via Natural or Artificial Opening Endoscopic, Diagnostic (ICD-10-PCS; 2023-11-07)
PROC: 0DBH8ZX Excision of Cecum, Via Natural or Artificial Opening Endoscopic, Diagnostic (ICD-10-PCS; 2023-11-07)
PROC: 0DBH8ZX Excision of Cecum, Via Natural or Artificial Opening Endoscopic, Diagnostic (ICD-10-PCS; 2023-11-07)
PROC: 0DB98ZX Excision of Duodenum, Via Natural or Artificial Opening Endoscopic, Diagnostic (ICD-10-PCS; 2023-11-07)
PROC: 0DB78ZX Excision of Stomach, Pylorus, Via Natural or Artificial Opening Endoscopic, Diagnostic (ICD-10-PCS; 2023-11-07)
PROC: 0DB68ZX Excision of Stomach, Via Natural or Artificial Opening Endoscopic, Diagnostic (ICD-10-PCS; 2023-11-07)
PROC: 0DB28ZX Excision of Middle Esophagus, Via Natural or Artificial Opening Endoscopic, Diagnostic (ICD-10-PCS; 2023-11-07)
PROC: 0DBK8ZX Excision of Ascending Colon, Via Natural or Artificial Opening Endoscopic, Diagnostic (ICD-10-PCS; principal; 2023-11-07 08:00)
DX: Z12.11 Encounter for screening for malignant neoplasm of colon (principal); D12.0 Benign neoplasm of cecum; D12.2 Benign neoplasm of ascending colon; D12.3 Benign neoplasm of transverse colon; D12.4 Benign neoplasm of descending colon; K63.5 Polyp of colon; K57.30 Diverticulosis of large intestine without perforation or abscess without bleeding; K64.8 Other hemorrhoids; K21.00 Gastro-esophageal reflux disease with esophagitis, without bleeding; K44.9 Diaphragmatic hernia without obstruction or gangrene; K29.50 Unspecified chronic gastritis without bleeding; B37.81 Candidal esophagitis; Z86.010 Personal history of colon polyps; Z80.0 Family history of malignant neoplasm of digestive organs
CPT/HCPCS: 88305-TC; 88312-TC; 88342-TC